=== PATIENT | male | born 1965 | race African-American/Black ===

== ENCOUNTER 2025-06-09 09:22 | Emergency (ER) | payer MEDICAID, SELFPAY ==
[2025-06-09 09:34] VITALS: BP 130/88; PULSE 72; RESP 18; TEMP 36.8; O2SAT 96; BMI 26.1
--- NOTE | 2025-06-09 09:39 | XR_ITS ---
Examination: CT brain head without contrast. 2-D sagittal coronal reconstructions Date and time of exam:June 09, 2025, 0957 hours INDICATIONS: Right-sided body numbness beginning several days ago CTDI: vol (mGy):47.5 DLP: (mGycm):904 Technique: Multiple CT axial sections of the brain have been obtained, 5 mm slice thickness. Contrast has not been administered. 2-D sagittal, coronal reconstructions have been obtained Low dose protocols were performed. One or more of the following dose reduction techniques were used; automated exposure control, adjustment of the mA and/or KV according to patient size, use of iterative reconstruction technique. Findings: No significant ventricular enlargement. Intra-axial or extra-axial hemorrhage density is not seen. No mass effect or midline shift Basal cisterns are not remarkable. Fourth ventricle is midline. Cranial vault intact. Impression: Negative for acute hemorrhage, mass effect or midline shift As clinically warranted, brain MRI follow-up would best assess for demyelinating disease, acute ischemic change
--- NOTE | 2025-06-09 09:40 | PD.EDRME ---
Rapid Medical Screening Exam E Arrival date/time: 06/09/25 09:22 59-year-old male with a history of a CVA presents to the emergency room with a chief complaint of right sided numbness, a fall, and slurred speech x 2 days. Patient states his signs and symptoms began yesterday morning. I have greeted and performed a focused initial assessment of this patient. A comprehensive ED assessment and evaluation of the patient, analysis of all test results, and completion of the medical decision making process will be conducted by additional ED providers. Chief Complaint: Fall Time Seen by Provider: 06/09/25 09:27 Vital signs: Vital Signs Temperature 98.3 F 06/09/25 09:34 Pulse Rate 72 06/09/25 09:34 Respiratory Rate 18 06/09/25 09:34 Blood Pressure 130/88 H 06/09/25 09:34 Pulse Oximetry (%) 96 06/09/25 09:34 Oxygen Delivery Method Room Air 06/09/25 09:34 Vital signs reviewed by provider: Yes
[2025-06-09 10:30] LABS: Collection Type, Urine Clean Catch; RBC,Urine 0 /hpf (0-3)
[2025-06-09 10:35] LABS: Basophils # (Auto) 0.0 Thou/mm3 (0.0-0.2); Basophils % (Auto) 1 % (0-2.5); Eosinophils # (Auto) 0.1 Thou/mm3 (0.0-0.5); Eosinophils % (Auto) 4 % (0-10); Hematocrit 47.0 % (41.0-53.0); Hemoglobin 15.2 g/dL (13.5-16.0); Immature Granulocytes Auto 0.01 Thou/mm3 (0.00-0.00); Lymphocytes # (Auto) 1.7 Thou/mm3 (1.0-4.8); Lymphocytes % (Auto) 44 % (10-50); Mean Corpuscular HGB Conc 32.3 g/dl (31.0-37.0); Mean Corpuscular Hemoglobin 27.0 pg (25.0-35.0); Mean Corpuscular Volume 84 fL (80-100); Monocytes # (Auto) 0.3 Thou/mm3 (0.0-0.8); Monocytes % (Auto) 8 % (0-12); Neutrophils # (Auto) 1.6 Thou/mm3 (1.8-7.7); Neutrophils % (Auto) 43 % (37-80); Nucleated Red Blood Cell # 0.00 Thou/mm3 (0.00-0.00); Nucleated Red Blood Cell % 0 /100 WBC (0); Platelet Count 187 Thou/mm3 (140-440); RDW Standard Deviation 44.7 fL (35.1-43.9); Red Blood Count 5.63 Miln/mm3 (4.50-5.90); White Blood Count 3.8 Thou/mm3 (3.8-10.6)
[2025-06-09 10:39] LABS: Amorphous Crystals,Urine Present (Absent); Bacteria,Urine Rare; Bilirubin,Urine Negative (Negative); Blood,Urine Negative (Negative); Clarity,Urine Clear (Clear/Hazy); Color,Urine Lt-Yellow (Lt Yel-Yel); Culture Indicated,Urine Not Indicated; Glucose, Urine Negative (Negative); Ketones,Urine Negative (Negative); Leukocyte Esterase,Urine Negative (Negative); Nitrite,Urine Negative (Negative); PH,Urine 6.5 (5.0-7.0); Protein,Urine Negative (Neg - Trace); Specific Gravity,Urine 1.008 (1.001-1.035); Squamous Epithelial Cell,Urine < 1 /hpf (0-5); Urobilinogen,Urine Negative mg/dL (0.0-1.0); WBC,Urine 1 /hpf (0-5)
[2025-06-09 10:53] LABS: INR 1.1 (0.9-1.3); Partial Thromboplastin Time 31.2 Seconds (22.0-36.0); Prothrombin Time 11.9 Seconds (9.0-12.2)
[2025-06-09 10:57] LABS: Alanine Aminotransferase 37 U/L (10-49); Albumin, Serum 4.7 gm/dL (3.4-4.8); Albumin/Globulin Ratio 1.9 (1.2-2.2); Alkaline Phosphatase 223 U/L (46-116); Anion Gap 7 (7-16); Aspartate Amino Transferase 31 U/L (0-34); BUN/Creatinine Ratio 9 Ratio (12-20); Bilirubin,Total 0.3 mg/dL (0.3-1.2); Blood Urea Nitrogen 7 mg/dL (9-23); Calcium 9.7 mg/dL (8.3-10.6); Calcium (Corrected) 9.7 mg/dL (8.5-10.1); Carbon Dioxide 29.9 mMol/L (20.0-31.0); Chloride 106 mMol/L (98-107); Creatinine (Component) 0.8 mg/dL (0.6-1.3); Estimated Creatinine Clearance 81.2 mL/min (>60); Globulin 2.5 gm/dL (2.3-3.5); Glucose 73 mg/dL (74-106); Magnesium 1.6 mg/dL (1.6-2.6); Osmolality,Calculated 281 (275-295); Potassium 3.9 mMol/L (3.4-5.1); Sodium 143 mMol/L (136-145); Total Protein 7.2 gm/dL (5.7-8.2); eGFR > 60 See Note
--- NOTE | 2025-06-09 11:26 | EDNOTE_ITS ---
ED Fall Injury RME/HPI General Chief Complaint: Fall Stated Complaint: Frequent Falls/off balance Time Seen by Provider: 06/09/25 09:27 Arrival date/time: 06/09/25 09:22 Limitations: no limitations RME / HPI RME / HPI Narrative: 59-year-old male who is here today with his drug and alcohol sponsor with an unclear history. He has had some falls that been occurring over the last 3 months but increasing in frequency over the last 2 weeks. He denies any associated injuries from this. States prior to his falls, he has no loss of conscious, chest pain, palpitations, shortness of breath. He has had no near syncopal episodes. He states his gait just feels unstable. He denies any vertigo or headache. Patient states that he is currently staying in a assisted living care center. I did contact them using the number that was provided. I I contacted staff at [facility] at [phone] and this place is actually a [facility] emergency department care center and they have no knowledge of his medical management. Staff there is states he is followed by [facility] and [place], [place]. A Dr. Aguayo manages his psychiatric medications. They do not have Dr. Goldstein's contact info. Currently staying in in patient addiction program. He has a history of bipolar, schizophrenia, hypertension, and had a CVA 3 to 4 months ago. Related Data Allergies Allergy/AdvReac Type Severity Reaction Status Date / Time No Known Allergies Allergy Verified 06/09/25 09:27 Review of Systems Review of Systems Systems Reviewed: All systems reviewed, normal except as documented ED Exam General Limitations: Present no limitations General appearance: Present alert and in no apparent distress Head Head exam: Present atraumatic, normocephalic and normal inspection Eye Eye exam: Present normal appearance, PERRL and EOMI ENT ENT exam: Present normal exam, normal oropharynx and mucous membranes moist Neck Neck exam: Present normal inspection, full ROM and trachea midline Chest Chest inspection: Present normal inspection and symmetric chest wall rise Respiratory Respiratory exam: Present normal lung sounds bilaterally Cardiovascular Cardiovascular exam: Present regular rate, normal rhythm and normal heart sounds Abdominal Exam Abdominal exam: Present soft and normal bowel sounds Extremities Exam Extremities exam: Present normal inspection and full ROM Back Exam Back exam: Present normal inspection and full ROM Neurological Exam Neurological exam: Present alert and oriented X3 Psychiatric Psychiatric exam: Present normal affect and flat affect Skin Skin exam: Present warm, dry, intact and normal color Course Quality Measures none Orders Category Date Time Status CT head/brain wo con Stat Exams 06/09/25 09:39 Completed CBC Stat Lab 06/09/25 10:09 Completed CMP [Comprehensive Metabolic Panel] Stat Lab 06/09/25 10:09 Completed Mag [Magnesium] Stat Lab 06/09/25 10:09 Completed PT [Prothrombin Time with INR] Stat Lab 06/09/25 10:09 Completed PTT [Partial Thromboplastin Time] Stat Lab 06/09/25 10:09 Completed UA, C/S IF [Urinalysis, C/S if Indicated] Stat Lab 06/09/25 10:20 Completed Vital Signs Vital signs: Vital Signs Temperature 98.3 F 06/09/25 09:34 Pulse Rate 72 06/09/25 09:34 Respiratory Rate 18 06/09/25 09:34 Blood Pressure 130/88 H 06/09/25 09:34 Pulse Oximetry (%) 96 06/09/25 09:34 Oxygen Delivery Method Room Air 06/09/25 09:34 Fall MDM Narrative MDM Narrative:: 59-year-old male who is here today with his drug and alcohol sponsor with an unclear history. He has had some falls that been occurring over the last 3 months but increasing in frequency over the last 2 weeks. He denies any associated injuries from this. States prior to his falls, he has no loss of conscious, chest pain, palpitations, shortness of breath. He has had no near syncopal episodes. He states his gait just feels unstable. He denies any vertigo or headache. Patient states that he is currently staying in a assisted living care center. I did contact them using the number that was provided. I I contacted staff at [facility] at [phone] and this place is actually a [facility] emergency department care center and they have no knowledge of his medical management. Staff there is states he is followed by [facility] and [place]. A Dr. Aguayo manages his psychiatric medications. They do not have Dr. Goldstein's contact info. Currently staying in in patient addiction program. He has a his tory of bipolar, schizophrenia, hypertension, and had a CVA 3 to 4 months ago. On exam, patient is nontoxic-appearing and in no visible signs of distress. Vital signs are stable. His work appears essentially unremarkable for any acute, emergent, process. I do believe the patient would warrant from outpatient follow-up and medical management. This discussed with the patient and his sponsor who is with him. They agreed to contact his PCP and a psychiatrist to discuss his recent med changes. Consider outpatient workup. Return as needed for any worsening or emergent changes. Patient data External records reviewed:: [facility] previous records Clinical information provided by:: patient and friend Social determinants that could affect healthcare access:: substance use Patient has the following chronic illnesses:: Schizophrenia, bipolar, history of CVA How is presenting disease/condition affected by chronic disease/condition?: exacerbated by Evaluation data The following diagnostics were reviewed and interpreted by me:: lab results (CBC, CMP, urinalysis unremarkable) and radiology exam(s) (CT of the head is unremarkable) Lab and/or radiology exams considered but not ordered:: n/a Interpretation Summary: n/a Medications / Prescriptions Medications or Prescriptions considered but not ordered:: n/a Medication administrations:: n/a Consultations Consultation(s) initiated? (list below): No Diagnosis Fall Differential Diagnosis: concussion with loss of consciousness and concussion without loss of consciousness Most likely diagnosis given after review of the tests above:: Generalized weakness Admission Indicated Admission indicated?: not indicated Admission Request Was there a request for admission?: No Disposition Plan Disposition Plan: Discharge Discharge Attestation Discharge Attestation: The patient and all family members were given an opportunity to ask questions and understood the discharge instructions. Discharge instructions specifically effects, indications for sooner follow up or return to the emergency department, and the expected course of current diagnosis. Patient condition: Stable Discharge Plan Plan Patient Disposition: HOME (Self Care) Patient condition on transfer: Stable Prescriptions/Referrals Referrals: Claus Amaya MD [Primary Care Provider] - In 1 week Problem List Clinical Impression: Weakness Patient/Caregiver Discharge Instructions Additional Instructions: - Your complete blood count, metabolic panel, urinalysis, and CT of the head were unremarkable today. - Please contact your primary doctor and your psychiatrist to discuss your symptoms and medical management. - Please return here at anytime for any worsening or emergent changes. Print Language: Danish Stand Alone Forms: Jemma Award Info., Patient Portal Info Letter
[2025-06-09 12:35] VITALS: BP 152/98; PULSE 62; RESP 15; TEMP 36.6; O2SAT 95
== END 2025-06-09 12:36 | disposition home or self-care (01) ==
PROVIDERS: Nurse Practitioner Family; Emergency Provider Emergency Medicine; PCP Family Medicine
DX: R53.1 Weakness (principal); R20.0 Anesthesia of skin; R29.6 Repeated falls
CPT/HCPCS: 36415; 70450; 80053; 81001; 83735; 85025; 85610; 85730; 99283